=== PATIENT | female | born 1995 | race Caucasian/White ===

== ENCOUNTER 2016-06-03 18:57 | Emergency (ER) | payer BC ==
[~2016-06-03] VITALS: Ht 157.5 cm; Wt 83.0 kg
[2016-06-03 20:12] LABS: PATH.CAST-FLAG NOT PRESENT; SPERM-FLAG NOT PRESENT; SRC-FLAG NOT PRESENT; XTAL-FLAG NOT PRESENT; YLC-FLAG NOT PRESENT
[2016-06-03] MEDS ORDERED: SODIUM CHLORIDE FLUSH 10ML SYR IVF ONE (21:00)
[2016-06-03] MEDS ORDERED: MORPHINE SULFATE 4 MG/ML, 1ML IVPush PRN (21:00)
[2016-06-03] MEDS ORDERED: ONDANSETRON 2MG/ML, 2ML IVPush ONE (21:00)
[2016-06-03] MEDS ORDERED: SODIUM CHLORIDE 0.9% 1,000ML IVBOLUS ONE (21:00)
[2016-06-03] MEDS ORDERED: MORPHINE SULFATE 4 MG/ML, 1ML ONE (21:19)
[2016-06-03] MEDS ORDERED: ONDANSETRON 2MG/ML, 2ML ONE (21:19)
[2016-06-03 22:00] VITALS: BP 135/78
== END 2016-06-03 22:39 | disposition home or self-care (01) ==
LOC: ED 21:36
DX: N83.02 Follicular cyst of left ovary (principal); R11.0 Nausea
CPT/HCPCS: 36415; 76830; 81003; 84703; 85025; 96361; 96374; 96375; 99285; J2405; J7030

== ENCOUNTER 2016-06-11 06:11 | Day surgery (SDC) | payer BC ==
[~2016-06-11] VITALS: Ht 157.5 cm; Wt 83.0 kg
[2016-06-11 07:16] VITALS: BP 97/66
[2016-06-11] MEDS ORDERED: TRAM50TA2 PO (07:16)
[2016-06-11] MEDS ORDERED: ONDA4TAB7 PO (07:16)
[2016-06-11 07:31] LABS: BLOOD UREA NITROGEN 11 mg/dL (7-18)
[2016-06-11] MEDS ORDERED: LACTATED RINGERS 1,000 ML IV SCH (07:35)
[2016-06-11 07:40] LABS: HCG UR OBC PASS
[2016-06-11] MEDS ORDERED: LIDOCAINE 1%-EPI 1:100K, 50ML ONE (07:47)
[2016-06-11] MEDS ORDERED: FLUORESCEIN SODIUM 500 MG/5 ML ONE (07:47)
[2016-06-11] MEDS ORDERED: FENTANYL PF 250 MCG/5ML ONE (07:50)
[2016-06-11] MEDS ORDERED: MIDAZOLAM 1 MG/ML, 2ML ONE (07:51)
[2016-06-11] MEDS ORDERED: DEXAMETHASONE 4 MG/ML, 1ML ONE (07:57)
[2016-06-11] MEDS ORDERED: ONDANSETRON 2MG/ML, 2ML ONE (07:57)
[2016-06-11] MEDS ORDERED: KETOROLAC 30 MG/1 ML ONE (07:57)
[2016-06-11] MEDS ORDERED: PROPOFOL 10 MG/ML, 20ML ONE (07:57)
[2016-06-11] MEDS ORDERED: HYDROmorphone 1 MG/ML, 1ML IV PRN (08:30)
[2016-06-11] MEDS ORDERED: ACETAMINOPHEN 325 MG TABLET PO PRN (08:30)
[2016-06-11] MEDS ORDERED: ONDANSETRON 2MG/ML, 2ML IVPush PRN (08:30)
[2016-06-11] MEDS ORDERED: hydrALAzine 20 MG/ML, 1ML IV PRN (08:30)
[2016-06-11] MEDS ORDERED: METOPROLOL 1 MG/ML, 5ML IV PRN (08:30)
[2016-06-11] MEDS ORDERED: MEPERIDINE/PF 25MG/0.5ML IVPush PRN (08:30)
[2016-06-11] MEDS ORDERED: ALBUTEROL SULFATE 2.5 MG/3 ML NPPB PRN (08:30)
[2016-06-11] MEDS ORDERED: LABETALOL 5MG/ML, 20ML IV PRN (08:30)
[2016-06-11] MEDS ORDERED: MIDAZOLAM 1 MG/ML, 2ML IV PRN (08:30)
[2016-06-11] MEDS ORDERED: PROMETHAZINE 25 MG/ML, 1ML IV PRN (08:30)
[2016-06-11] MEDS ORDERED: EPHEDRINE 50 MG/ML, 1ML IVPush PRN (08:30)
[2016-06-11] MEDS ORDERED: OXYcodone 5 MG/5 ML ORAL.SOL UDC ONE ×2 (09:10→09:24)
[2016-06-11] MEDS ORDERED: ACETAMINOPHEN 325 MG TABLET ONE (09:10)
[2016-06-11] MEDS ORDERED: MEPERIDINE/PF 25MG/0.5ML ONE (09:10)
[2016-06-11] MEDS: OXYcodone 5 MG/5 ML ORAL.SOL UDC PO PRN ×2 (09:16→09:27)
[2016-06-11] MEDS ORDERED: FENTANYL PF 100 MCG/2ML ONE (09:24)
[2016-06-11] MEDS ORDERED: ALBUTEROL SULFATE 2.5 MG/3 ML ONE (09:26)
[2016-06-11] MEDS: FENTANYL PF 100 MCG/2ML IV PRN ×2 (09:27→09:42)
[2016-06-11] MEDS ORDERED: HYDROmorphone 2 MG/ML, 1ML ONE (10:58)
[2016-06-11] MEDS ORDERED: HYDROmorphone 2 MG/ML, 1ML IVPush ONE (11:00)
== END 2016-06-11 12:30 | disposition home or self-care (01) ==
LOC: OUT 06:11
PROVIDERS: ATTEND Obstetrics & Gynecology Gynecology
DX: Z30.432 Encounter for removal of intrauterine contraceptive device (principal); N80.3 Endometriosis of pelvic peritoneum; J45.909 Unspecified asthma, uncomplicated; F17.210 Nicotine dependence, cigarettes, uncomplicated
CPT/HCPCS: 36415; 58301; 58662; 80048; 81025; 94640; J1100; J1170; J1885; J2175; J2250; J2405; J2704; J3010; J7120

== ENCOUNTER 2016-06-27 00:06 | Emergency (ER) | payer BC ==
[~2016-06-27] VITALS: Ht 157.5 cm; Wt 82.9 kg
[~2016-06-27 00:06] MED LIST: ONDA4TAB7 PO; TRAM50TA2 PO
[2016-06-27 00:07] VITALS: BP 116/81
[2016-06-27] MEDS ORDERED: SODIUM CHLORIDE FLUSH 10ML SYR IVF ONE (01:30)
[2016-06-27] MEDS ORDERED: MORPHINE SULFATE 4 MG/ML, 1ML IVPush PRN (01:30)
[2016-06-27] MEDS ORDERED: SODIUM CHLORIDE 0.9% 1,000ML IVBOLUS ONE (01:30)
[2016-06-27] MEDS ORDERED: ONDANSETRON 2MG/ML, 2ML IVPush ONE (01:30)
[2016-06-27 01:41] LABS: ASPARTATE AMINO TRANSFERASE 14 U/L (15-37); BLOOD UREA NITROGEN 20 mg/dL (7-18)
== END 2016-06-27 03:26 | disposition home or self-care (01) ==
LOC: ED 01:33
DX: R10.2 Pelvic and perineal pain (principal); Z88.8 Allergy status to other drugs, medicaments and biological substances
CPT/HCPCS: 36415; 76830; 80053; 81003; 83690; 84703; 85025; 96361; 96374; 96375; 99285; J2405; J7030

== ENCOUNTER 2019-09-25 11:23 | Day surgery (SDC) | payer BC ==
[~2019-09-25] VITALS: Ht 157.5 cm; Wt 94.2 kg
[2019-09-25] MEDS ORDERED: LACTATED RINGERS 1,000 ML IV SCH (11:58)
[2019-09-25] MEDS ORDERED: CHLORHEXIDINE 15 ML UDC MM ONE (12:00)
[2019-09-25] MEDS ORDERED: OXYCODONE PO (12:01)
[2019-09-25] MEDS ORDERED: ESCI10TA PO (12:01)
[2019-09-25 12:05] VITALS: BP 133/94
[2019-09-25] MEDS ORDERED: CHLORHEXIDINE 15 ML UDC ONE (12:12)
[2019-09-25 12:15] LABS: HCG UR SG 1.025 (1.003-1.030)
[2019-09-25] MEDS ORDERED: BUPIVACAINE/PF 0.5% ONE (12:28)
[2019-09-25] MEDS ORDERED: BUPIVACAINE/PF-EPI 0.5% 1:200K ONE (12:28)
[2019-09-25] MEDS ORDERED: FENTANYL PF 100 MCG/2ML ONE ×3 (12:38→14:48)
[2019-09-25] MEDS ORDERED: LIDOCAINE-MPF 2% ,5ML ONE (12:39)
[2019-09-25] MEDS ORDERED: PROPOFOL 10 MG/ML, 20ML ONE (12:39)
[2019-09-25] MEDS ORDERED: ONDANSETRON 2MG/ML, 2ML ONE (12:49)
[2019-09-25] MEDS ORDERED: EPHEDRINE 50 MG/ML, 1ML ONE (12:49)
[2019-09-25] MEDS ORDERED: DEXAMETHASONE 4 MG/ML, 1ML ONE ×3 (12:54)
[2019-09-25] MEDS ORDERED: CEFAZOLIN 1,000 MG ONE ×2 (12:54)
[2019-09-25] MEDS ORDERED: OXYcodone 5 MG/5 ML ORAL.SOL UDC PO PRN (13:30)
[2019-09-25] MEDS ORDERED: ONDANSETRON 2MG/ML, 2ML IVPush PRN (13:30)
[2019-09-25] MEDS ORDERED: KETOROLAC 30 MG/1 ML ONE (14:14)
[2019-09-25] MEDS: FENTANYL PF 100 MCG/2ML IV PRN ×4 (14:39→14:59)
[2019-09-25] MEDS ORDERED: OXYcodone 5 MG/5 ML ORAL.SOL UDC ONE (14:48)
[2019-09-25] MEDS ORDERED: HYDROmorphone 1 MG/ML, 1ML INJ ONE (15:12)
[2019-09-25] MEDS ORDERED: HYDROmorphone 1 MG/ML, 1ML INJ IVPush PRN (15:30)
== END 2019-09-25 17:10 | disposition home or self-care (01) ==
LOC: OUT 11:23
PROVIDERS: ATTEND Orthopaedic Surgery Hand Surgery
DX: S52.572A Other intraarticular fracture of lower end of left radius, initial encounter for closed fracture (principal); Z11.59 Encounter for screening for other viral diseases; G89.18 Other acute postprocedural pain; S52.612A Displaced fracture of left ulna styloid process, initial encounter for closed fracture; F32.9 Major depressive disorder, single episode, unspecified; J45.909 Unspecified asthma, uncomplicated; M48.061 Spinal stenosis, lumbar region without neurogenic claudication; F17.210 Nicotine dependence, cigarettes, uncomplicated; Z79.891 Long term (current) use of opiate analgesic; Z79.899 Other long term (current) drug therapy; Z88.8 Allergy status to other drugs, medicaments and biological substances; Z91.040 Latex allergy status; V80.018A Animal-rider injured by fall from or being thrown from other animal in noncollision accident, initial encounter; Y93.I9 Activity, other involving external motion; Y92.89 Other specified places as the place of occurrence of the external cause; Y99.8 Other external cause status
CPT/HCPCS: 25608; 25651; 64415; 73100; 81025; 87635; C1713; J0690; J1100; J1170; J1885; J2405; J2704; J3010; J7120; 76000

== ENCOUNTER 2019-10-09 00:16 | Emergency (ER) | payer BC, OTHER ==
[~2019-10-09] VITALS: Ht 157.5 cm; Wt 96.0 kg
[~2019-10-09 00:16] MED LIST changes: +ESCI10TA PO; +OXYCODONE PO
--- NOTE | 2019-10-09 00:40 | NUR ---
PT SITTING IN BED, RESPIRATIONS EVEN AND UNLABORED. STATES PAIN IS 9/10. PER PT SHE HAD A PIN PLACED INCORRECTLY IN SURGERY, WHICH WAS REMOVED A WEEK LATER. SHE THEN HAD A CAST PLACED TODAY AND STATES "I THINK THE PAIN STARTED WHEN THE LOCAL ANASTHETIC WORE OFF."
[2019-10-09] MEDS ORDERED: HYDROcodone/APAP 10/325 MG TABLET ONE (00:45)
[2019-10-09] MEDS ORDERED: HYDROcodone/APAP 5/325 TABLET ONE (00:48)
[2019-10-09] MEDS ORDERED: HYDROcodone/APAP 10/325 MG TABLET PO ONE (01:00)
--- NOTE | 2019-10-09 01:15 | NUR ---
BREAK RN: QUALITY ASSURANCE SPECIALIST IN ROOM TAKING OFF CAST. CALL LIGHT IN PLACE. WILL CONTINUE TO MONITOR.
[2019-10-09] MEDS ORDERED: HYDROmorphone 1 MG/ML, 1ML INJ ONE (01:46)
--- NOTE | 2019-10-09 01:52 | NUR ---
PT MEDICATED TO MAR AND EDUCATED THAT SHE NEEDS TO WAIT FOR 30 MINUTES FOR MONITORING. PT AGREEABLE.
--- NOTE | 2019-10-09 01:56 | NUR ---
Kristie miramontes in [facility] - 10/09/19 at 0156 by LÓPEZ REPORT GIVEN TO RADHA BOTELLO
--- NOTE | 2019-10-09 01:57 | NUR ---
REPORT GIVEN TO RADHA MAE
[2019-10-09] MEDS ORDERED: HYDROmorphone 1 MG/ML, 1ML INJ IM ONE (02:00)
--- NOTE | 2019-10-09 02:15 | NUR ---
PT SITTING ON GURNEY, ON PHONE, NO LONGER TEARY EYED AND STATES RELIEF FROM PAIN. VSS.
[2019-10-09 02:22] VITALS: BP 123/84
== END 2019-10-09 02:24 | disposition home or self-care (01) ==
LOC: ED 02:01
DX: M25.532 Pain in left wrist (principal); M79.632 Pain in left forearm
CPT/HCPCS: 29125; 96372; 99283; J1170